=== PATIENT | female | born 1985 | race African-American/Black ===

== ENCOUNTER 2025-04-11 19:40 | Emergency (ER) | payer MEDICAID, SELFPAY | END 2025-04-11 21:35 | LOC: BURERS 19:40 | DX: S92.352A Displaced fracture of fifth metatarsal bone, left foot, initial encounter for closed fracture (principal); W06.XXXA Fall from bed, initial encounter | CPT/HCPCS: 99283 ==

== ENCOUNTER 2025-04-13 13:45 | Emergency (ER) | payer SELFPAY ==
[2025-04-13] MEDS ORDERED: Ondansetron PF 4 MG/2 ML Vial ONE (14:24)
[2025-04-13 14:39] LABS: Hematocrit 37.8 % (36.0-47.0); Hemoglobin 12.1 g/dL (12.0-16.0); Mean Corpuscular Hemoglobin 30.2 pg (27.0-31.0); Mean Corpuscular Volume 94.2 fl (78.0-98.0); Platelet Count 473 10x3/uL (130-400); Red Blood Cell (RBC) Count 4.01 mill/uL (4.20-5.40); White Blood Cell (WBC) Count 7.5 10x3/uL (4.8-10.8)
[2025-04-13 14:48] LABS: ALT (SGPT) 32 U/L (Less than 34); AST (SGOT) 29 U/L (11-34); Albumin 3.3 g/dL (3.1-4.5); Alkaline Phosphatase 56 U/L (40-110); Anion Gap 19 mmol/L (10-20); BUN (Urea Nitrogen) 5 mg/dL (7.0-18.7); Bilirubin, Total 0.3 mg/dL (0.3-1.2); Calc. Creatinine Clearance 0 mL/min (70-130); Calcium 8.8 mg/dL (7.8-10.44); Carbon Dioxide 24 mmol/L (22-29); Chloride 98 mmol/L (98-107); Globulin 3.9 g/dL (2.4-3.5); Glucose 117 mg/dL (70-105); Potassium 2.7 mmol/L (3.5-5.1); Sodium 138 mmol/L (136-145)
[2025-04-13 14:49] LABS: BHCG - Serum Negative (NEGATIVE); Pregs Control Background? CLEAR/WHITE (CLR/WHITE); Pregs Control Bar Appear? YES (CONTROL BAR)
[2025-04-13 15:04] LABS: MDiff Complete? YES
[2025-04-13 17:22] LABS: Glucose, Urine (Dipstick) Negative (Negative); Leukocyte Moderate (Negative); Protein, Urine (Dipstick) 100 mg/dL (Neg-Trace); Specific Gravity, Urine 1.025 (1.005-1.030)
[2025-04-13 17:30] LABS: Bacteria/HPF 4+ HPF (None Seen); CAUTI Indications for Culture Dysuria,urgency,freq
[2025-04-13 17:32] LABS: Urine Culture Reflex No No
[2025-04-13] MEDS ORDERED: Cephalexin 250 MG CAP ONE (18:18)
== END 2025-04-13 18:36 ==
LOC: BURERS 13:45
DX: R11.2 Nausea with vomiting, unspecified (principal); E87.6 Hypokalemia
CPT/HCPCS: 80053; 81001; 84703; 85025; 96374; J2405